=== PATIENT | male | born 2000 | race Caucasian/White ===

== ENCOUNTER 2018-05-22 16:47 | Emergency (ER) | payer SELFPAY ==
[2018-05-22 16:58] VITALS: BP 138/90
--- NOTE | 2018-05-22 17:26 | UC ---
Lower Extremity/Ankle HPI - HPI Summary HPI Summary: Patient is a 18 year old gentleman , who present today to the urgent care with left foot pain after injury today. He reports that left foot run over by a lift today at work 1525. He works for [employer] He reports who painful weightbearing. He has not taken any medication so far. Denies any other symptoms - History of Current Complaint Chief Complaint: UCLowerExtremity Stated Complaint: FOOT INJURY Time Seen by Provider: 05/22/18 17:02 Hx Obtained From: Patient Pain Intensity: 2 - Allergies/Home Medications Allergies/Adverse Reactions: Allergies Allergy/AdvReac Type Severity Reaction Status Date / Time No Known Allergies Allergy Verified 05/22/18 16:59 Home Medications: Home Medications NK [No Home Medications Reported] 05/22/18 [History Confirmed 05/22/18] PMH/Surg Hx/FS Hx/Imm Hx - Additional Past Medical History Additional PMH: No significant past medical history Previously Healthy: Yes - Surgical History Surgical History: None - Social History Alcohol Use: None Substance Use Type: None Smoking Status (MU): Never Smoked Tobacco Review of Systems All Other Systems Reviewed And Are Negative: Yes Constitutional: Positive: Negative Skin: Positive: Negative Eyes: Positive: Negative ENT: Positive: Negative Respiratory: Positive: Negative Cardiovascular: Positive: Negative Gastrointestinal: Positive: Negative Genitourinary: Positive: Negative Motor: Positive: Negative Neurovascular: Positive: Negative Musculoskeletal: Positive: Arthralgia - Left foot, Decreased ROM, Edema - Left foot Neurological: Positive: Negative Psychological: Positive: Negative Is Patient Immunocompromised?: No Physical Exam - Summary Physical Exam Summary: Physical Exam: Const: Appears well. No signs of apparent distress present. Alert and oriented x 3. Musculo: Walks with an antalgic gait Head/Face: Atraumatic, normocephalic on inspection. Eyes: EOMI and PERRLA in both eyes. Conjunctivae clear. No discharge noted ENT: Hearing normal Respiratory: Respirations are unlabored. Lungs clear to auscultation bilaterally, no wheezing , rhonchi or rales noted . CVS: Regular rate and Rhythm, S1S2 normal , no murmurs identified. Extremities: Peripheral circulation is grossly normal. Pulses 2+ Left Ankle/Feet examination: Left Ankle: Gait: Protected weightbearing, painful Inspection/palpation: No bruising, swelling or crepitus noted. There is no tenderness Ankle mortise appears intact. ROM: full AROM: Full dorsiflexion(20 deg), Full plantar flexion(50 deg) Strength: 5/5 with dorsiflexion, plantarflexion, inversion and eversion Special tests:Anterior drawer test is negative . Side to side test negative.Talar tilt test(inversion stress) and the eversion stress test negative. Negative Squeeze and External Rotation tests. Heel tap test negative. Left Feet: Insp/Palp: Swelling and erythema noted on the dorsal aspect around the midfoot. There is tenderness to palpation in the generalized and foot area dorsally. Strength: EHL 5/5 blaterally Skin: No scars, rashes, lesions or ecchymosis. No break in the skin 2+ posterior tibial and dorsalis pedis pulse on the left Neuro: Sensation to light touch is intact in his toes Triage Information Reviewed: Yes Vital Signs: Initial Vital Signs Temp 99.5 F 05/22/18 16:56 Pulse 91 05/22/18 16:56 Resp 18 05/22/18 16:56 BP 138/90 05/22/18 16:56 Pulse Ox 100 05/22/18 16:56 Vital Signs Reviewed: Yes Diagnostics - Radiology No standard instances Radiology Interpretation Completed By: Radiologist - Left foot x-ray: IMPRESSION: No fracture of the left foot is noted. Lower Extremity Course/Dx - Course Course Of Treatment: During the visit today, we obtained x-rays of the left foot: IMPRESSION: No fracture of the left foot is noted. We discussed the findings which are consistent with soft tissue injury and contusion of the foot. Since he is hurting with weightbearing Lanter keep him in the cam boot walker and make him partial weightbearing as tolerated and crutches. He can take Advil as needed for pain and ice it locally. He will follow up with orthopedics within a week, until then he will stay out of work. Patient expressed understanding . - Differential Dx/Diagnosis Provider Diagnosis: Contusion, foot, Soft tissue injury of left foot Discharge - Sign-Out/Discharge Documenting (check all that apply): Patient Departure All imaging exams completed and their final reports reviewed: Yes - Discharge Plan Condition: Stable Disposition: HOME Patient Education Materials: Foot Contusion (ED) Forms: *Work Release Referrals: Bandar Gibbs MD [Medical Doctor] - 1 Week No Primary Care Phys,NOPCP [Primary Care Provider] - Additional Instructions: Please take ibuprofen as needed for pain Can ice it as needed, 15 minutes at a time 3-4 times a day. Follow up with orthopedics within a week Excuse for work provided. Plan to stay out of work until seen by orthopedics. Return to Urgent care / ER if symptoms get worse. - Billing Disposition and Condition Condition: STABLE Disposition: Home
== END 2018-05-22 18:04 | disposition home or self-care (01) ==
LOC: UCEAST 16:47
DX: S90.32XA Contusion of left foot, initial encounter (principal); S90.922A Unspecified superficial injury of left foot, initial encounter; X50.3XXA Overexertion from repetitive movements, initial encounter; Y92.9 Unspecified place or not applicable
CPT/HCPCS: 99203; G0463